=== PATIENT | female | born 1985 | race Caucasian/White ===

== ENCOUNTER → 2018-12-17 | Outpatient (CLI) | payer OTHER ==
[~2018-12-17] MED LIST: B-12100T2 PO; COLA100C5 PO; FOLI400T PO; IBUP-1114 PO; LEVO50TA5 PO; MAGN400C PO; MAPA500T2 PO; ZOFR4TAB14 PO
--- NOTE | 2018-12-17 08:05 | REP ---
Clinical: Right upper quadrant pain. Technique: Real time estrada scale ultrasound examination using curved array transducer. Findings: The gallbladder demonstrates multiple gallstones and sludge along with mild wall thickening to 3 mm and a sonographic Castillo's sign consistent with acute cholecystitis. No pericholecystic fluid or biliary ductal dilatation is appreciated. The common bile duct measures 4 mm diameter. Liver and pancreas are normal in contour, size, echogenicity without focal hepatic or pancreatic lesion identified. The right kidney is normal in reniform shape without hydronephrosis and measures 10.2 x 5.6 x 4.6 cm. Visualized abdominal aorta normal. No ascites. Impression: Findings suggest acute cholecystitis and require correlation. Electronically Signed by Cleveland Lund MD 12/17/2018 07:57 A
== END ==
LOC: M RAD 06:45
PROVIDERS: ATTEND Physician Assistant Medical
DX: R10.11 Right upper quadrant pain (principal)

== ENCOUNTER 2018-12-22 11:51 | Emergency (ER) | payer OTHER ==
[~2018-12-22] VITALS: Ht 157.5 cm; Wt 50.0 kg
[~2018-12-22 11:51] MED LIST changes: -B-12100T2 PO
[2018-12-22] MEDS ORDERED: B-12100T2 PO (11:57)
[2018-12-22 12:52] LABS: BASO # 0.1 10^3/uL (0.0-0.2); EOS # 0.1 10^3/uL (0.0-0.50); EOS % 1.7 % (0.0-3.0); HEMATOCRIT 40.4 % (36.0-47.0); HEMOGLOBIN 13.7 g/dl (12.0-15.5); LYMPH # 2.5 10^3/uL (1.5-4.5); LYMPH % 41.9 % (24.0-44.0); MEAN CORPUSCULAR HEMOGLOBIN 30.2 pg (27.0-33.0); MEAN CORPUSCULAR HGB CONC 33.9 g/dl (32.0-36.5); MEAN CORPUSCULAR VOLUME 89.2 fl (80.0-96.0); MONO # 0.4 10^3/uL (0.0-0.8); MONO % 5.9 % (0.0-5.0); NEUTROPHILS % 49.3 % (36.0-66.0); PLATELET COUNT, AUTOMATED 191 10^3/uL (150-450); RED BLOOD COUNT 4.53 10^6/uL (4.00-5.40); WHITE BLOOD COUNT 6.1 10^3/uL (4.0-10.0)
[2018-12-22 13:17] LABS: ALBUMIN 3.8 GM/DL (3.2-5.2); ALT/SGPT 38 U/L (12-78); AMYLASE 68 U/L (25-115); BILIRUBIN,DIRECT 0.2 MG/DL (0.0-0.2); BILIRUBIN,TOTAL 0.8 MG/DL (0.2-1.0); BLOOD UREA NITROGEN 9 MG/DL (7-18); CALCIUM LEVEL 8.7 MG/DL (8.5-10.1); CARBON DIOXIDE LEVEL 28 MEQ/L (21-32); CHLORIDE LEVEL 106 MEQ/L (98-107); CREATININE FOR GFR 0.67 MG/DL (0.55-1.30); GLOMERULAR FILTRATION RATE > 60.0 (>60); GLUCOSE, FASTING 77 MG/DL (70-100); LIPASE 110 U/L (73-393); SODIUM LEVEL 140 MEQ/L (136-145); TOTAL PROTEIN 7.5 GM/DL (6.4-8.2)
[2018-12-22 13:33] LABS: HCG, SERUM QUALITATIVE NEGATIVE (NEGATIVE)
--- NOTE | 2018-12-22 14:03 | REP ---
RIGHT UPPER QUADRANT ULTRASOUND: 12/22/2018. Comparison: 12/17/2018 ultrasound, CT 01/20/2018. Clinical history: Right upper quadrant pain. Abnormal ultrasound last week. Findings: Sonographic evaluation of the right upper quadrant shows that the liver remains homogeneous and without focal hepatic mass nor intrahepatic biliary dilatation. There is no evidence of ascites . The gallbladder again shows multiple mobile stones. Wall is thickened up to 3.7 mm. There is a positive sonographic Castillo sign again seen. No definite pericholecystic fluid on these images. Common duct is 4.2 mm without dilatation or filling defect, unchanged. Pancreas unremarkable. The right kidney 11.1 x 4 x 4.6 cm. An echogenic focus lower pole of the right kidney 1.2 x 1.1 x 0.8 cm without echogenic shadowing to suggest a stone. This suggests fat and likely a angiomyolipoma. Impression: 1. Positive sonographic Castillo's sign with thickened gallbladder wall up to 3.7 mm and multiple mobile gallstones. Findings suggest a degree of acute cholecystitis with stones. 2. Common duct 4.2 mm without a filling defect. No intrahepatic biliary dilatation. Liver unremarkable. No ascites. 3. Visualized pancreas and right kidney show no acute finding. There is a echogenic but non-shadowing focus lower pole right kidney suggesting a small angiomyolipoma. Electronically Signed by Brad Saravia MD 12/22/2018 08:43 P
[2018-12-22 14:25] VITALS: BP 101/62
== END 2018-12-22 14:43 | disposition home or self-care (01) ==
LOC: M ED 11:51
DX: K80.10 Calculus of gallbladder with chronic cholecystitis without obstruction (principal); F33.9 Major depressive disorder, recurrent, unspecified; Z79.899 Other long term (current) drug therapy

== ENCOUNTER 2019-03-01 07:33 | Day surgery (SDC) | payer OTHER ==
[~2019-03-01] VITALS: Ht 157.5 cm; Wt 55.5 kg
[~2019-03-01 07:33] MED LIST changes: +ACETAMINOPHEN 1000MG 100ML IV BTL (OFIRMEV) (J0131 PER 10MG) As Ordered ONE; +AMPICILLIN SOD/SULBACTAM SOD 3 GM in D5W MINI-BAG PLUS 100 ML IV ONE; +B-12100T2 PO; +BUPIVACAINE HCL 0.25% 30 ML VIAL As Ordered ONE; +CONRAY-60 60% 50ML VIAL (Q9961) As Ordered ONE; +KETOROLAC 60 MG/2 ML VIAL (J1885) As Ordered ONE; +LIDOCAINE 1% SDV INJ 30 ML VIAL As Ordered ONE; +LIDOCAINE 2% INJ 100 MG/5 ML SDV (FOR ANES.) As Ordered ONE; +LR 1,000 ML IV ONE; +MIDAZOLAM INJ 2 MG/2 ML VIAL (J2250) As Ordered ONE; +ONDANSETRON 4MG/2ML VIAL (J2405) As Ordered ONE; +PROPOFOL 200 MG/20 ML VIAL As Ordered ONE; +ROCURONIUM BROMIDE 50 MG/5 ML VIAL As Ordered ONE; +dexameTHASONE 4 MG/ML 1ML VIAL (J1100) As Ordered ONE; +fentaNYL 100 MCG/2 ML INJECTION (J3010) As Ordered ONE
[2019-03-01 08:15] LABS: URINE PREG TEST NEGATIVE (NEGATIVE)
[2019-03-01] MEDS ORDERED: fentaNYL 100 MCG/2 ML INJECTION (J3010) As Ordered ONE ×2 (08:58→10:33)
[2019-03-01] MEDS ORDERED: SUGAMMADEX SODIUM 500 MG/5 ML VIAL (BRIDION) As Ordered ONE (09:39)
--- NOTE | 2019-03-01 10:07 | ROOPDOC ---
[facility] Report Of Operation Report of Operation DATE OF PROCEDURE: 03/01/19 PREPROCEDURE DIAGNOSES: Cholelithiasis, history of acute cholecystitis. POSTPROCEDURE DIAGNOSES: Cholelithiasis, Chronic Cholecystitis. PROCEDURE: Laparoscopic Cholecystectomy. SURGEON: Meng Hooker MD FISH PEDDLER: MD Dr. Evita Pena assisted placement of the laparoscopic ports, retraction of the gallbladder for adequate visualization ANESTHESIA: General Anesthesia. ESTIMATED BLOOD LOSS: Approximately 20 mL. COMPLICATIONS: none. REMARKS: chronically thickened gallbladder, somewhat tethered to the falciform ligament. Multiple large stones in the neck of the gallbladder slight rotation of the cystic duct and artery,(more posterior location). PROCEDURE NOTE: Patient is a 33-year-old female who has presented before to the emergency room with either severe biliary colic or mild acute cholecystitis and most also found to have cholelithiasis. She subsequently followed up with me in the office and we discussed performing laparoscopic cholecystectomy for which she is brought to the OR today DESCRIPTION OF PROCEDURE: Patient was given a dose Unasyn 3 g IV preoperatively for prophylaxis. She was brought to the operating room, laid supine on the table, compression boots placed for DVT prophylaxis. General endotracheal anesthesia started. Her abdomen then prepped and draped in usual sterile fashion. Surgical timeout was performed prior to starting surgery. Entry into the abdomen done through an incision above the umbilicus. A Veress needle was inserted with a controlled fashion. CO2 insufflation started to pressure 15 mmHg. Using the same incision a 5 mm Visiport was placed under direct vision laparoscope. The area underneath the insertion site was inspected and no injury found. She was then placed in steep reverse Trendelenburg. Her right side was tilted up to further expose the gallbladder. Under direct vision a 11 mm epigastric port and 25 mm working ports placed along the right subcostal line. Operative findings: Her liver is noted to be smooth in contour no nodularities or lesions found, mildly enlarged for her body size. Her gallbladder is tensely distended, appears chronically thickened wall. The lower portion of the body of the gallbladder was tethered to the falciform ligament likely from previous cholecystitis with her is also some omentum attached to the lower portion of the gallbladder and the lateral side. There were stones palpable on the body and neck of the gallbladder. I used an aspirating needle to partially decompress the gallbladder allowing for better manipulation. The fundus of the gallbladder was grasped and the gallbladder was elevated superiorly exposing the neck of the gallbladder. The peritoneum overlying the area was opened up and dissected free both anteriorly and posteriorly to help with retraction of the gallbladder. The hepatocystic triangle was approached and dissected using a [place] and instrument. The cystic duct was identified coming off from the next gallbladder this was circumferentially dissected. The cystic artery was identified which looks to have branched earlier and is in a more posterior location. This was clipped at the main trunk and also at the branching anteriorly as it courses lateral from its posterior location. This was similarly circumferentially dissected off surrounding adipose tissue. We continued posterior dissection proximally at the next gallbladder until a critical view of safety was achieved whereby only the previously identified duct and artery coursing through the neck the gallbladder. At this point the cystic artery was clipped 4 times and divided. After again checking her anatomy and verifying that the previously identified cystic duct, this was also clipped 4 times and divided. The rest of the gallbladder was then dissected free of the gallbladder bed using Bovie cautery. There was minimal bleeding at the lateral gallbladder attachments to the liver capsule this was easily controlled with Bovie cautery. The gallbladder was then placed in an Endo Catch bag and retrieved outside through the epigastric port site. Under insufflation and inspected the clips and noted this to be in place. No further bleeding noted. No bile leakage noted. The abdomen was insufflated all ports were removed. The epigastric fascial defect repaired with 0 Vicryl in a mattress fashion. Rest of the skin incisions closed with 4-0 Monocryl in subcuticular fashion. Steri-Strips and gauze dressings were placed, the wound. Patient was informed they awakened, extubated and brought to recovery room stable MENG HOOKER MD March 01, 2019 10:07
[2019-03-01] MEDS ORDERED: METOCLOPRAMIDE INJ 10MG/2ML VIAL (J2765) IV PRN (10:30)
[2019-03-01] MEDS ORDERED: MEPERIDINE INJ 25 MG/ML VIAL (J2175) IV PRN (10:30)
[2019-03-01] MEDS ORDERED: LR 1,000 ML IV SCH (10:30)
[2019-03-01] MEDS ORDERED: ONDANSETRON 4MG/2ML VIAL (J2405) IV PRN ×2 (10:30→11:00)
[2019-03-01] MEDS ORDERED: PERCOCET 5MG/325MG TAB As Ordered ONE (10:33)
[2019-03-01] MEDS: fentaNYL 100 MCG/2 ML INJECTION (J3010) IV PRN ×2 (10:37→10:42)
[2019-03-01] MEDS: PERCOCET 5MG/325MG TAB PO PRN ×2 (10:38→11:09)
[2019-03-01] MEDS ORDERED: NORCO, ANEXSIA 5/325MG TABLET (HYDROcodone/ACETAMINOPHEN) PO PRN ×2 (10:45)
[2019-03-01] MEDS ORDERED: METOCLOPRAMIDE INJ 10MG/2ML VIAL (J2765) As Ordered ONE (11:57)
[2019-03-01] MEDS ORDERED: MORPHINE 4 MG/ML 1ML VIAL/SYRINGE (J2270) IV ONE (12:00)
[2019-03-01 14:35] VITALS: BP 118/74
[2019-03-01] MEDS ORDERED: ZOFR4TAB16 PO (14:46)
[2019-03-01] MEDS ORDERED: KETOROLAC 30 MG/ML VIAL (J1885) IV PRN (16:00)
== END 2019-03-01 15:10 | disposition home or self-care (01) ==
LOC: M SDC 07:33
PROVIDERS: ATTEND Surgery
DX: K80.10 Calculus of gallbladder with chronic cholecystitis without obstruction (principal); F41.9 Anxiety disorder, unspecified; F32.9 Major depressive disorder, single episode, unspecified; E03.9 Hypothyroidism, unspecified; G43.909 Migraine, unspecified, not intractable, without status migrainosus; Z79.899 Other long term (current) drug therapy
CPT/HCPCS: 47562; 84703; 88304; J0131; J1100; J1885; J2250; J2270; J2405; J2765; J3010